=== PATIENT | male | born 1960 ===

== ENCOUNTER 2023-06-27 10:48 | Day surgery (SDC) | payer OTHER ==
[~2023-06-27] VITALS: Ht 172.7 cm; Wt 79.0 kg
[2023-06-27 11:29] VITALS: BP 122/69; PULSE 61; TEMP 98
[2023-06-27] MEDS ORDERED: BACTRIM DS 8001 TAB PO (12:49)
[2023-06-27] MEDS ORDERED: PERCOCET 325 MG1 TA2 PO (12:49)
[2023-06-27 14:00] VITALS: BP 125/81; PULSE 60; TEMP 97.7
[2023-06-27 14:09] VITALS: TEMP 98.6
[2023-06-27 14:15] VITALS: BP 121/85; PULSE 58
[2023-06-27 14:30] VITALS: BP 123/81; PULSE 60
[2023-06-27 14:45] VITALS: BP 118/78; PULSE 64
--- NOTE | 2023-06-27 15:10 | NUR ---
1400 RETURNS TO ROOM 8 PER CART. AWAKE, ALERT. RESP UNLABORED. HOB ELEVATED 40 DEGREES. DENIES ABD PAIN OR URINARY URGENCY. VITAL SIGNS OBTAINED. CALL LIGHT AT SIDE. 1415 TOLERATES PO JUICE WITHOUT NAUSEA. 1430 DISCHARGE INSTRUCTIONS REVIEWED. PATIENT VERBALIZES UNDERSTANDING. COPY PROVIDED IN DISCHARGE FOLDER 1445 SITS ON EDGE OF CART. DRESSES SELF, THEN AMBULATES TO BATHROOM WITH STANDBY ASSIST. ADMITS TO VOIDING WITHOUT DIFFICULTY. URINE STRAINED. 1500 SEATED IN WHEELCHAIR, AWAITING ARRIVAL OF [facility]ENN[facility]ER FOR TRANSPORT HOME
== END 2023-06-27 15:10 | disposition home or self-care (01) ==
LOC: SDCO 10:48
DX: N21.0 Calculus in bladder (principal); F17.210 Nicotine dependence, cigarettes, uncomplicated
CPT/HCPCS: J0690; J2405; J2704; J3010; J7120